=== PATIENT | male | born 1940 | race Hispanic/Latino ===

== ENCOUNTER 2016-12-07 18:10 | Emergency (ER) | payer MEDICARE, MEDICAID ==
[2016-12-07 18:34] VITALS: BP 117/67; PULSE 44; RESP 20; TEMP 98.3; O2SAT 100
--- NOTE | 2016-12-07 18:49 | ED PDOC ---
HPI: Back Time Seen by Provider: 12/07/16 18:30 Chief Complaint (Nursing): Back Pain Chief Complaint (Provider): Back pain History Per: Patient History/Exam Limitations: no limitations Onset/Duration Of Symptoms: Days (3x) Current Symptoms Are (Timing): Still Present Severity: Moderate Previous Symptoms: Back Pain (history of kidney stones) Associated Symptoms: None Exacerbating Factor(s): Other (ambulating) Additional Complaint(s): 75 year old male patient with a pertinent medical history of kidney surgery for kidney stones, NIDDM, and hypertension presents to the ED with complaints of localized lower left back pain. He reports that it feels like a muscular pain and worsens when he ambulates. He denies having any urinary symptoms (including hematuria), leg pain, and chest pain. PMD: Kit Jj MD. - Risk Factors AAA Risk Factors: Pos: Older Than 49 Years Of Age, Hypertension Past Medical History Reviewed: Historical Data, Nursing Documentation, Vital Signs Vital Signs: Last Vital Signs Temp 98.3 F 12/07/16 18:28 Pulse 44 L 12/07/16 18:28 Resp 20 12/07/16 18:28 BP 117/67 12/07/16 18:28 Pulse Ox 100 12/07/16 18:28 - Medical History PMH: Arthritis, Diabetes (NIDDM), HTN Denies: Chronic Kidney Disease - Surgical History Surgical History: Back Surgery, Coronary Stent - Family History Family History: States: Unknown Family Hx, Diabetes, Hypertension - Social History Alcohol: None Drugs: Denies - Home Medications Home Medications: Ambulatory Orders Medication Instructions Recorded Oxycodone HCl/Acetaminophen 1 tab PO Q6 PRN #10 tab 10/06/14 [Percocet 325 mg-5 mg] Cephalexin [Keflex] 500 mg PO QID 10 Days 11/12/14 Ciprofloxacin 0.3% [Ciloxan 0.3% 1 drop OS QID #1 bottle 03/03/15 Ophth] Ibuprofen [Motrin Tab] 800 mg PO Q8 #20 tab 06/14/15 Azithromycin [Zithromax] 250 mg PO DAILY #6 dose 01/13/16 Oseltamivir Phosphate [Tamiflu] 75 mg PO BID #10 capsule 01/13/16 Cyclobenzaprine [Cyclobenzaprine 10 mg PO BID #14 tab 12/07/16 HCl] Ibuprofen [Motrin] 400 mg PO Q6 #30 tab 12/07/16 - Allergies Allergies/Adverse Reactions: Allergies Allergy/AdvReac Type Severity Reaction Status Date / Time No Known Allergies Allergy Verified 06/14/15 14:00 Review of Systems ROS Statement: Except As Marked, All Systems Reviewed And Found Negative Cardiovascular: Negative for: Chest Pain Musculoskeletal: Positive for: Back Pain (left lower back). Negative for: Leg Pain Physical Exam - Reviewed Nursing Documentation Reviewed: Yes Vital Signs Reviewed: Yes - Physical Exam Appears: Positive for: Well, Non-toxic, No Acute Distress Head Exam: Positive for: ATRAUMATIC, NORMOCEPHALIC Skin: Positive for: Normal Color, Warm, Dry Cardiovascular/Chest: Positive for: Regular Rate, Rhythm Gastrointestinal/Abdominal: Positive for: Normal Exam, Soft. Negative for: Tenderness Back: Positive for: L CVA Tenderness. Negative for: Vertebral Tenderness (no midline tenderness, no lumbar paraspinal tenderness) Neurologic/Psych: Positive for: Alert, Oriented (3x) - Laboratory Results Urine dip results: Negative for: Leukocyte Esterase, Blood, Nitrate, Ketones, Glucose, Bilirubin, Protein - ECG O2 Sat by Pulse Oximetry: 100 (RA) Pulse Ox Interpretation: Normal Medical Decision Making Medical Decision Makin:30 Initial impression: 75 year old male patient with a history of kidney stones has left lower back pain. Initial plan: * Udip * toradol 30mg IM * reevaluation pt improved in ed and will go home to rest. U-DIp is normal. advised with MSK pain to use warm compress and stretch with pmd f/u Scribe Attestation: Documented by Madeleine Zambrano, acting as a scribe for Aarti Wyatt MD. Provider Scribe Attestation: All medical record entries made by the Scribe were at my direction and personally dictated by me. I have reviewed the chart and agree that the record accurately reflects my personal performance of the history, physical exam, medical decision making, and the department course for this patient. I have also personally directed, reviewed, and agree with the discharge instructions and disposition. Disposition - Clinical Impression Clinical Impression: Back pain - Patient ED Disposition Is Patient to be Admitted: No Counseled Patient/Family Regarding: Diagnosis, Need For Followup, Rx Given - Disposition Referrals: [facility] [Outside] Disposition: Routine/Home Disposition Time: 19:42 Condition: STABLE Prescriptions: Cyclobenzaprine [Cyclobenzaprine HCl] 10 mg PO BID #14 tab Ibuprofen [Motrin] 400 mg PO Q6 #30 tab Instructions: Muscle Spasm (ED)
== END 2016-12-07 20:17 | disposition home or self-care (01) ==
LOC: H.ER 18:10
DX: M54.9 Dorsalgia, unspecified (principal); E11.9 Type 2 diabetes mellitus without complications; I10 Essential (primary) hypertension; Z95.5 Presence of coronary angioplasty implant and graft
CPT/HCPCS: 96372; 99282; J1885

== ENCOUNTER 2017-03-09 14:55 | Emergency (ER) | payer MEDICARE, MEDICAID ==
[2017-03-09 15:21] VITALS: RESP 16
[2017-03-09 15:22] VITALS: TEMP 98
--- NOTE | 2017-03-09 15:23 | ED PDOC ---
HPI: SOB/CHF/COPD Time Seen by Provider: 03/09/17 15:08 Chief Complaint (Nursing): Shortness Of Breath Chief Complaint (Provider): Shortness Of Breath, Chest Pain History Per: Patient History/Exam Limitations: no limitations Onset/Duration Of Symptoms: Days (x2 days) Current Symptoms Are (Timing): Still Present Associated Symptoms: Chest Pain. denies: Fever, Chills Additional Complaint(s): Gabriele Iqbal, a 76 year old male, who has a past medical history of congestive heart failure and heart disease presents to the ED with complaints of shortness of breath and chest pain x2 days. Patient also notes some cough absent of phlegm, dizzy spells, swollen legs and weakness. Denies nausea, vomiting, fevers and chills. - Risk Factors PE Risk Factors: Pos: CHF Past Medical History Reviewed: Historical Data, Nursing Documentation, Vital Signs Vital Signs: Last Vital Signs Temp 98.0 F 03/09/17 15:21 Pulse 74 03/09/17 15:21 Resp 16 03/09/17 15:21 BP 123/77 03/09/17 15:21 Pulse Ox 94 L 03/09/17 15:21 - Medical History PMH: Arthritis, Diabetes (NIDDM), HTN Denies: Chronic Kidney Disease - Surgical History Surgical History: Back Surgery, Cholecystectomy, Coronary Stent Other surgeries: Knee replacement surgery x2. - Family History Family History: States: Unknown Family Hx, Diabetes, Hypertension - Home Medications Home Medications: Ambulatory Orders Medication Instructions Recorded Ammonium Lactate 12% [Lac-Hydrin 12 % TOP PRN PRN 03/09/17 12% Cream (140 g)] Aspirin [Ecotrin] 81 mg PO DAILY 03/09/17 Atorvastatin Calcium [Atorvastatin 40 mg PO DAILY 03/09/17 Calcium] Carvedilol [Coreg] 1 tab PO DAILY 03/09/17 Celecoxib [Celebrex] 200 mg PO DAILY 03/09/17 DiphenhydrAMINE [Benadryl] 25 mg PO DAILY 03/09/17 Duloxetine HCl [Duloxetine HCl] 60 mg PO DAILY 03/09/17 Ergocalciferol (Vitamin D2) 1 tab PO DAILY 03/09/17 [Vitamin D] Famotidine [Pepcid] 20 mg PO DAILY 03/09/17 Finasteride [Proscar] 1 tab PO DAILY 03/09/17 Fluticasone Propionate [Flovent 50 mcg INH DAILY 03/09/17 Diskus] Glimepiride [Amaryl] 1 mg PO DAILY 03/09/17 Levocetirizine Dihydrochloride 5 mg PO DAILY 03/09/17 [Xyzal] [id number] Ethyl Esters 1 GM 1 gm PO DAILY 03/09/17 [Lovaza] Sitagliptin Phos/Metformin HCl 1 tab PO DAILY 03/09/17 [Janumet 50-1,000 mg Tablet] Tamsulosin [Flomax] 0.4 mg PO DAILY 03/09/17 Torsemide [Demadex] 10 mg PO DAILY 03/09/17 - Allergies Allergies/Adverse Reactions: Allergies Allergy/AdvReac Type Severity Reaction Status Date / Time No Known Allergies Allergy Verified 03/09/17 14:59 Review of Systems ROS Statement: Except As Marked, All Systems Reviewed And Found Negative Constitutional: Negative for: Fever, Chills Cardiovascular: Positive for: Chest Pain Respiratory: Positive for: Cough, Shortness of Breath Gastrointestinal: Negative for: Nausea, Vomiting Neurological: Positive for: Weakness, Dizziness Physical Exam - Reviewed Nursing Documentation Reviewed: Yes Vital Signs Reviewed: Yes - Physical Exam Appears: Positive for: Non-toxic, No Acute Distress Head Exam: Positive for: ATRAUMATIC, NORMAL INSPECTION, NORMOCEPHALIC Skin: Positive for: Normal Color, Warm, Dry Eye Exam: Positive for: Normal appearance, EOMI, PERRL ENT: Positive for: Normal ENT Inspection Neck: Positive for: Normal, Painless ROM, Supple Cardiovascular/Chest: Positive for: Regular Rate, Rhythm, Chest Non Tender. Negative for: Tachycardia Respiratory: Positive for: Normal Breath Sounds. Negative for: Wheezing, Respiratory Distress Gastrointestinal/Abdominal: Positive for: Normal Exam (Stomach potruding.), Bowel Sounds, Soft. Negative for: Tenderness, Distended, Guarding, Rebound Back: Positive for: Normal Inspection. Negative for: L CVA Tenderness, R CVA Tenderness Extremity: Positive for: Normal ROM. Negative for: Tenderness, Pedal Edema, Deformity, Swelling Neurologic/Psych: Positive for: Alert, Oriented, Gait - Laboratory Results Result Diagrams: 03/09/17 15:32 03/09/17 15:32 - Progress Re-evaluation Time: 18:00 Condition: Re-examined, Improved Medical Decision Making Medical Decision Makin Initial impression: 76 year old male presenting with shortness of breath and chest pain Initial Plan: * VBG * EKG * B-type Natriuretic * Comp metabolic panel * Troponin * Udip * CBC * CXR * Blood culture * Influenza A B * Reevaluation Scribe Attestation Documented by Carmen Coronado acting as a scribe for Consuelo Macias MD. Provider Attestation: All medical record entries made by the Scribe were at my direction and personally dictated by me. I have reviewed the chart and agree that the record accurately reflects my personal performance of the history, physical exam, medical decision making, and the department course for this patient. I have also personally directed, reviewed, and agree with the discharge instructions and disposition. Patient not in distress. He subjectively feels better and well enough that he does not want to be admitted. He prefers to return if his symptoms were to recur Disposition - Clinical Impression Clinical Impression: Shortness of breath - Patient ED Disposition Is Patient to be Admitted: No Doctor Will See Patient In The: Office Counseled Patient/Family Regarding: Diagnosis, Need For Followup - Disposition Referrals: [facility] [Outside] Disposition: Routine/Home Disposition Time: 18:23 Condition: STABLE Instructions: Dyspnea (ED) Print Language: AZERI - POA Present On Arrival: None
[2017-03-09 15:39] LABS: VENOUS BLOOD GAS BASE EXCESS 3.4 mmol/L (0.0-2.0); VENOUS BLOOD GAS PCO2 50 mmHg (40-60); VENOUS BLOOD GAS PO2 63 mm/Hg (30-55); VENOUS BLOOD PH 7.38 (7.32-7.43)
[2017-03-09 15:43] LABS: EOS # 0.2 K/uL (0.0-0.7); EOS % 5.3 % (0.0-4.0); HEMOGLOBIN 12.7 g/dL (12.0-18.0); LYMPH % 23.9 % (20.0-40.0); MEAN CELL VOLUME 87.1 fl (80.0-94.0); MEAN CORPUSCULAR HEMOGLOBIN 28.9 pg (27.0-31.0); MEAN CORPUSCULAR HGB CONC 33.2 g/dL (33.0-37.0); MEAN PLATELET VOLUME 6.9 fl (7.2-11.7); MONO # 0.4 K/uL (0.0-0.8); MONO % 8.6 % (0.0-10.0); NEUT # 2.6 K/uL (1.8-7.0); NEUT % 61.2 % (50.0-75.0); RBC 4.4 Mil/uL (4.40-5.90); RED CELL DISTRIBUTION WIDTH 14.8 % (11.5-14.5); WHITE BLOOD COUNT 4.2 K/uL (4.8-10.8)
[2017-03-09 15:49] LABS: ALB/GLOB RATIO 1.3 (1.0-2.1); ALBUMIN 4.3 g/dL (3.5-5.0); ALT/SGPT 52 U/L (21-72); AST/SGOT 38 U/L (17-59); BLOOD UREA NITROGEN 14 mg/dl (9-20); CALCIUM 9.3 mg/dL (8.4-10.2); GFR AFRICAN-AMERICAN > 60; GFR NON-AFRICAN AMERICAN > 60
[2017-03-09 15:59] LABS: B-TYPE NATRIURETIC PEPTIDE 53.3 pg/ml (0-900)
[2017-03-09 18:43] VITALS: BP 132/75; PULSE 78; O2SAT 100
--- NOTE | 2017-03-10 08:14 | CARD ---
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
== END 2017-03-09 18:40 | disposition home or self-care (01) ==
LOC: H.ER 14:55
DX: R06.02 Shortness of breath (principal); I25.2 Old myocardial infarction; I10 Essential (primary) hypertension; Z95.5 Presence of coronary angioplasty implant and graft; J44.9 Chronic obstructive pulmonary disease, unspecified; E11.9 Type 2 diabetes mellitus without complications

== ENCOUNTER 2017-07-21 10:41 | Emergency (ER) | payer MEDICARE, MEDICAID ==
[2017-07-21 10:48] VITALS: BMI 41.0
[2017-07-21 11:06] VITALS: RESP 17
--- NOTE | 2017-07-21 11:10 | ED PDOC ---
HPI: Male Pain Time Seen by Provider: 07/21/17 11:00 Chief Complaint (Nursing): Male Genitourinary History Per: Patient Onset/Duration Of Symptoms: Other ( 2weeks) Current Symptoms Are (Timing): Still Present Severity: Mild Pain Scale Rating Of: 0 Associated Symptoms: denies: Fever, Nausea, Vomiting, Urinary Symptoms Alleviating Factors: None Additional Complaint(s): Painless hematuria, xiang colored x 2 weeks. Denies NVD. No dysuria or frequency. Denies back pain Past Medical History Vital Signs: Last Vital Signs Temp 97 F L 07/21/17 11:02 Pulse 75 07/21/17 11:02 Resp 17 07/21/17 11:02 BP 124/58 L 07/21/17 11:02 Pulse Ox 97 07/21/17 11:02 - Medical History PMH: Arthritis, Asthma, Diabetes (NIDDM), HTN, Kidney Stones Denies: Chronic Kidney Disease - Surgical History Surgical History: Back Surgery, Cholecystectomy, Coronary Stent - Family History Family History: States: Unknown Family Hx, Diabetes, Hypertension - Home Medications Home Medications: Ambulatory Orders Medication Instructions Recorded Ammonium Lactate 12% [Lac-Hydrin 12 % TOP PRN PRN 03/09/17 12% Cream (140 g)] Aspirin [Ecotrin] 81 mg PO DAILY 03/09/17 Atorvastatin Calcium [Atorvastatin 40 mg PO DAILY 03/09/17 Calcium] Carvedilol [Coreg] 1 tab PO DAILY 03/09/17 Celecoxib [Celebrex] 200 mg PO DAILY 03/09/17 DiphenhydrAMINE [Benadryl] 25 mg PO DAILY 03/09/17 Duloxetine HCl [Duloxetine HCl] 60 mg PO DAILY 03/09/17 Ergocalciferol (Vitamin D2) 1 tab PO DAILY 03/09/17 [Vitamin D] Famotidine [Pepcid] 20 mg PO DAILY 03/09/17 Finasteride [Proscar] 1 tab PO DAILY 03/09/17 Fluticasone Propionate [Flovent 50 mcg INH DAILY 03/09/17 Diskus] Glimepiride [Amaryl] 1 mg PO DAILY 03/09/17 Levocetirizine Dihydrochloride 5 mg PO DAILY 03/09/17 [Xyzal] [id number] Ethyl Esters 1 GM 1 gm PO DAILY 03/09/17 [Lovaza] Sitagliptin Phos/Metformin HCl 1 tab PO DAILY 03/09/17 [Janumet 50-1,000 mg Tablet] Tamsulosin [Flomax] 0.4 mg PO DAILY 03/09/17 Torsemide [Demadex] 10 mg PO DAILY 03/09/17 Ciprofloxacin HCl [Cipro] 500 mg PO BID #20 tab 07/21/17 - Allergies Allergies/Adverse Reactions: Allergies Allergy/AdvReac Type Severity Reaction Status Date / Time No Known Allergies Allergy Verified 03/09/17 14:59 Review of Systems Constitutional: Negative for: Fever Gastrointestinal: Negative for: Nausea, Vomiting, Abdominal Pain Genitourinary Male: Positive for: Hematuria. Negative for: Dysuria, Frequency Musculoskeletal: Negative for: Back Pain Physical Exam - Physical Exam Appears: Positive for: Non-toxic, No Acute Distress Gastrointestinal/Abdominal: Positive for: Bowel Sounds, Soft. Negative for: Tenderness Back: Positive for: Normal Inspection. Negative for: L CVA Tenderness, R CVA Tenderness Neurologic/Psych: Positive for: Alert, Oriented - Laboratory Results Result Diagrams: 07/21/17 11:30 07/21/17 11:30 - ECG O2 Sat by Pulse Oximetry: 97 Disposition - Clinical Impression Clinical Impression: Hematuria, Kidney stone - Patient ED Disposition Is Patient to be Admitted: No - Disposition Referrals: John Elizondo Jr., MD [Staff Provider] - Disposition: Routine/Home Disposition Time: 12:33 Condition: FAIR Prescriptions: Ciprofloxacin HCl [Cipro] 500 mg PO BID #20 tab Instructions: Acute Hematuria (ED), Kidney Stones (ED) Forms: [employer] ([employer])
[2017-07-21 11:37] LABS: BASO % 0.9 % (0.0-2.0); EOS # 0.3 K/uL (0.0-0.7); EOS % 6.1 % (0.0-4.0); HEMATOCRIT 40.4 % (35.0-51.0); LYMPH # 1.1 K/uL (1.0-4.3); MEAN CORPUSCULAR HEMOGLOBIN 29.4 pg (27.0-31.0); MEAN CORPUSCULAR HGB CONC 33.4 g/dL (33.0-37.0); MEAN PLATELET VOLUME 7.6 fl (7.2-11.7); MONO # 0.3 K/uL (0.0-0.8); MONO % 7.1 % (0.0-10.0); NEUT # 2.8 K/uL (1.8-7.0); NEUT % 61.9 % (50.0-75.0); NRBC % 0.2 % (0.0-0.0); RED CELL DISTRIBUTION WIDTH 15.3 % (11.5-14.5); WHITE BLOOD COUNT 4.5 K/uL (4.8-10.8)
[2017-07-21 11:41] LABS: RBC URINE 2728 /hpf (0-3); URINE BILIRUBIN NEGATIVE (NEGATIVE); URINE BLOOD LARGE (NEGATIVE); URINE COLOR YELLOW (YELLOW); URINE GLUCOSE (UA) NEG (Normal); URINE KETONE NEGATIVE (NEGATIVE); URINE LEUKOCYTE ESTERASE NEG Leu/uL (Negative); URINE PROTEIN 30 mg/dL (NEGATIVE); URINE UROBILINOGEN 0.2-1.0 mg/dL (0.2-1.0)
[2017-07-21 11:58] LABS: ALB/GLOB RATIO 1.1 (1.0-2.1); ALKALINE PHOSPHATASE 77 U/L (38-126); ALT/SGPT 39 U/L (21-72); AST/SGOT 36 U/L (17-59); BILIRUBIN,TOTAL 0.4 mg/dl (0.2-1.3); BLOOD UREA NITROGEN 16 mg/dl (9-20); CALCIUM 9.1 mg/dL (8.4-10.2); CARBON DIOXIDE 24 mmol/L (22-30); CHLORIDE 108 mmol/L (98-107); GFR AFRICAN-AMERICAN > 60; GLUCOSE,RANDOM 132 mg/dL (75-110); POTASSIUM 4.4 MMOL/L (3.6-5.0); SODIUM 142 mmol/l (132-148); TOTAL PROTEIN 7.9 G/DL (6.3-8.2)
--- NOTE | 2017-07-21 12:28 | CT ---
PROCEDURE: CT Abdomen and Pelvis without intravenous contrast HISTORY: r/o kidney stone COMPARISON: 06/26/2010 CT abdomen TECHNIQUE: Unenhanced study. Neither oral nor intravenous contrast administered. Radiation dose: Total exam DLP = 307.49 mGy-cm. This CT exam was performed using one or more of the following dose reduction techniques: Automated exposure control, adjustment of the mA and/or kV according to patient size, and/or use of iterative reconstruction technique. FINDINGS: LOWER THORAX: Unremarkable. LIVER: Hepatic steatosis. No focal masses. No intrahepatic bile duct dilatation or perihepatic ascites. Incidental finding(s): Punctate benign calcifications likely related to granulomatous exposure. Assess GALLBLADDER AND BILE DUCTS: Unremarkable. PANCREAS: Unremarkable. No gross lesion or ductal dilatation. SPLEEN: Unremarkable. ADRENALS: Unremarkable. No mass. KIDNEYS AND URETERS: Right kidney: 5 mm nonobstructing calculus upper pole. Adjacent smaller calculus less than 3 mm. Left kidney: Unremarkable VASCULATURE: Unremarkable. No aortic aneurysm. BOWEL: Unremarkable. No obstruction. No gross mural thickening. APPENDIX: Unremarkable. Normal appendix. PERITONEUM: Unremarkable. No free fluid. No free air. LYMPH NODES: Unremarkable. No enlarged lymph nodes. BLADDER: Unremarkable. REPRODUCTIVE: Prostate remains enlarged impressing upon the base of the bladder overall appearance similar to that seen on the prior study. BONES: No acute fracture. OTHER FINDINGS: None. IMPRESSION: Unilateral, right nonobstructing calculi (2). These reside in the upper pole. Additional benign and/or incidental findings described above.
[2017-07-21 12:53] VITALS: O2SAT 98
[2017-07-21 13:16] VITALS: BP 130/78; PULSE 78; TEMP 96.7
== END 2017-07-21 13:16 | disposition home or self-care (01) ==
LOC: H.ER 10:41
DX: N20.0 Calculus of kidney (principal); E11.9 Type 2 diabetes mellitus without complications; I10 Essential (primary) hypertension; J45.909 Unspecified asthma, uncomplicated; Z79.82 Long term (current) use of aspirin; Z95.5 Presence of coronary angioplasty implant and graft